=== PATIENT | female | born 2000 | race African-American/Black ===

== ENCOUNTER 2022-10-13 16:30 | Observation (INO) | payer MEDICAID ==
[~2022-10-13] VITALS: Ht 167.6 cm; Wt 81.6 kg
[2022-10-13 16:53] VITALS: BP 120/72
[2022-10-13] MEDS ORDERED: LACTATED RINGERS 1,000 ML IV SCH (17:35)
[2022-10-13 18:00] LABS: BASOPHILS # (AUTO) 0.1 K/uL (0.00-0.22); BASOPHILS % (AUTO) 0.9 % (0.0-2.0); EOSINOPHILS # (AUTO) 0.1 K/uL (0-0.4); EOSINOPHILS % (AUTO) 0.7 % (0.0-4.0); HEMATOCRIT 32.6 % (36-48); HEMOGLOBIN 11.3 g/dL (12.0-16.0); LYMPHOCYTES # (AUTO) 1.6 K/uL (2.5-16.5); LYMPHOCYTES % (AUTO) 18.1 % (20.5-51.1); MEAN CORPUSCULAR HEMOGLOBIN 33 pg (27-31); MEAN CORPUSCULAR HGB CONC 35 g/dL (33-37); MEAN CORPUSCULAR VOLUME 95.8 fL (80-94); MONOCYTES # (AUTO) 0.7 K/uL (0.8-1.0); NEUTROPHILS # (AUTO) 6.4 K/uL (1.8-7.7); NEUTROPHILS % (AUTO) 72.3 % (42.2-75.2); PLATELET COUNT (AUTO) 155 K/uL (140-450); RED BLOOD CELL COUNT(AUTO) 3.41 MIL/uL (4.20-5.40); RED CELL DISTRIBUTION WIDTH 12.7 % (11.6-13.7); WHITE BLOOD COUNT (AUTO) 8.9 K/uL (4.5-11.0)
[2022-10-13 18:15] LABS: PROTHROMBIN TIME 9.3 secs (10.8-13.4)
[2022-10-13 18:20] LABS: ALBUMIN 3.2 g/dL (3.4-5.0); ANION GAP 12.4 (8-16); CARBON DIOXIDE 22.4 mmol/L (21-32); CREATININE 0.5 mg/dL (0.6-1.3); POTASSIUM 3.8 mmol/L (3.5-5.1); TOTAL BILIRUBIN 0.9 mg/dL (0.0-1.0)
[2022-10-13] MEDS: LACTATED RINGERS 1,000 ML IV SCH ×2 (18:21→23:34)
[2022-10-13 18:51] LABS: APPEARANCE,URINE SL CLOUDY (CLEAR); BILIRUBIN,URINE NEGATIVE (NEGATIVE); BLOOD, URINE NEGATIVE (NEGATIVE); COLOR,URINE YELLOW (YELLOW); LEUKOCYTE ESTERASE ,URINE 3+ (NEGATIVE); NITRITE, URINE NEGATIVE (NEGATIVE); PH,URINE 6.5 (5.0-9.0); UGLUCOSE NEGATIVE (NEGATIVE)
[2022-10-13 19:04] LABS: BARBITURATE, URINE NEGATIVE ng/ml (NEG <=200); BENZODIAZEPINE, URINE NEGATIVE ng/mL (NEG <=200); CANNABINOID, URINE NEGATIVE ng/mL (NEG <=50); COCAINE, URINE NEGATIVE ng/mL (NEG <=300); OPIATE, URINE NEGATIVE ng/mL (NEG <=2000); OTHER CASTS, URINE None Seen /LPF (None Seen); PHENCYCLIDINE SCREEN,URINE NEGATIVE ng/mL (NEG <=25); RBC,URINE 0-5 /HPF (0-5)
[2022-10-13] MEDS ORDERED: cefTRIAXone 1,000 MG in LIDOCAINE MPF 1% 2.1 ML IM SCH (23:05)
[2022-10-13] MEDS ORDERED: TERBUTALINE 1 MG/ML VIAL SUBQ SCH (23:05)
[2022-10-13] MEDS ORDERED: LIDOCAINE 1% 500 MG/ 50 ML VIAL IM ONE (23:05)
[2022-10-13] MEDS ORDERED: cefTRIAXone 1,000 MG in LIDOCAINE MPF 1% 2.1 ML IM ONE (23:10)
[2022-10-13] MEDS ORDERED: LIDOCAINE 1% 500 MG/50 ML VIAL ONE (23:27)
[2022-10-13] MEDS ORDERED: cefTRIAXone 1,000 MG VIAL ONE (23:27)
[2022-10-14] MEDS: LACTATED RINGERS 1,000 ML IV SCH (00:38)
[2022-10-14] MEDS ORDERED: MORPHINE SULFATE 4 MG/ML SYR IVP PRN (05:35)
[2022-10-14 08:08] LABS: HEPATITIS B SURFACE ANTIGEN Negative (Negative)
[2022-10-14] MEDS ORDERED: ONDANSETRON 4 MG/2 ML VIAL IVP PRN (08:30)
[2022-10-14] MEDS ORDERED: ONDANSETRON 4 MG/2 ML VIAL ONE (08:32)
--- NOTE | 2022-10-14 09:56 | NUR ---
PATIENT HAS BEEN SCREENED AND CATEGORIZED LOW NUTRITION RISK. PATIENT WILL BE SEEN WITHIN 7 DAYS OF ADMISSION. 10/20/22 REVIEWED BY [address]
== END 2022-10-14 14:40 | disposition home or self-care (01) ==
LOC: MLD 16:30
PROVIDERS: ADMIT Obstetrics & Gynecology; ATTEND Obstetrics & Gynecology
DX: O62.9 Abnormality of forces of labor, unspecified (principal); Z20.822 Contact with and (suspected) exposure to COVID-19; Z3A.39 39 weeks gestation of pregnancy
CPT/HCPCS: 36415; 76805; 76815; 80053; 80305; 81001; 85025; 85610; 85730; 86592; 86703; 86762; 86886; 86900; 86901; 87086; 87340; 87426; 87653; 96361; 96372; 96374; 96375; G0378; J0696; J2001; J2270; J2405; J7120; Q0092